=== PATIENT | male | born 1970 | race Caucasian/White ===

== ENCOUNTER 2016-12-06 14:09 | Observation (INO) | payer OTHER ==
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
[2016-12-06] MEDS ORDERED: IOPAMIDOL (ISOVUE-300) 100 ML BTL IV ONE (14:17)
[2016-12-06 14:25] LABS: % IMMATURE GRANULYOCYTES 0.7 % (0.0-1.1); ABSOLUTE IMMATURE GRANULOCYTES 0.07 10^3/uL (0.00-0.10); ADD DIFF? NO; ADD MORPH? NO; ADD SCAN? NO; ATYPICAL LYMPHOCYTE FLAG 10 (0-99); FRAGMENT RBC FLAG 0 (0-99); HEMATOCRIT 45.4 % (40.0-51.0); HEMOGLOBIN 15.6 g/dL (13.7-17.5); LEFT SHIFT FLG 0 (0-99); LIPEMIA HEMOLYSIS FLAG 90 (0-99); MEAN CELL HEMOGLOBIN 33.6 pg (27.9-34.1); MEAN CELL HEMOGLOBIN CONCENTR. 34.4 g/dL (32.4-36.7); MEAN CELL VOLUME 97.8 fL (81.5-99.8); MEAN PLATELET VOLUME 8.9 fL (8.7-11.7); PLATELET CLUMPS FLAG 20 (0-99); PLATELET COUNT 282 10^3/uL (150-400); RED BLOOD CELL COUNT 4.64 10^6/uL (4.40-6.38); RED CELL DISTRIBUTION WIDTH 11.8 % (11.5-15.2)
[2016-12-06] MEDS ORDERED: NS 1,000 ML IV ONE (14:30)
[2016-12-06 14:34] LABS: INR 1.01 (0.83-1.16); PROTIME(PATIENT) 13.2 SEC (12.0-15.0)
[2016-12-06 14:35] LABS: APTT 28.2 SEC (23.0-38.0)
[2016-12-06 14:40] LABS: ANION GAP 12 mEq/L (8-16); CALCIUM 9.9 mg/dL (8.5-10.4); CARBON DIOXIDE 25 mEq/l (22-31); CHLORIDE 103 mEq/L (97-110); CREATININE 0.9 mg/dL (0.7-1.3); ETHANOL SERUM < 10 mg/dL (0-10); GLOMERULAR FILTRATION RATE > 60; GLUCOSE 115 mg/dL (70-100); POTASSIUM 4.1 mEq/L (3.5-5.2); SODIUM 140 mEq/L (134-144)
[2016-12-06] MEDS ORDERED: HYDROmorphONE/DILAUDID 1 MG/ML SYR ONE (14:51)
[2016-12-06] MEDS ORDERED: ONDANSETRON 4 MG/2 ML VIAL IVP ONE (15:16)
[2016-12-06] MEDS ORDERED: HYDROmorphONE/DILAUDID 1 MG/ML SYR IVP ONE (15:16)
[2016-12-06] MEDS ORDERED: ONDANSETRON 4 MG/2 ML VIAL IVP PRN (15:43)
[2016-12-06] MEDS ORDERED: NALOXONE HCL 0.4 MG/ML INJ IVP PRN (15:43)
[2016-12-06] MEDS ORDERED: HYDROmorphONE/DILAUDID 1 MG/ML SYR IVP PRN (15:57)
[2016-12-06] MEDS ORDERED: NS 1,000 ML IV SCH (16:00)
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
[2016-12-06] MEDS: PANTOPRAZOLE SODIUM 40 MG TAB PO SCH (17:47)
[2016-12-06] MEDS: ACETAMINOPHEN 500 MG TAB PO SCH (21:39)
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
[2016-12-06] MEDS: BACITRACIN/POLYMYXIN B SULFATE 28.3 GM TUBE TP SCH (23:34)
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
[2016-12-07 04:51] VITALS: TEMP 98.1
[2016-12-07] MEDS: ACETAMINOPHEN 500 MG TAB PO SCH (05:03)
[2016-12-07 05:08] LABS: % IMMATURE GRANULYOCYTES 0.3 % (0.0-1.1); ABSOLUTE IMMATURE GRANULOCYTES 0.03 10^3/uL (0.00-0.10); ADD DIFF? NO; ADD MORPH? NO; ADD SCAN? NO; ATYPICAL LYMPHOCYTE FLAG 0 (0-99); FRAGMENT RBC FLAG 0 (0-99); HEMATOCRIT 38.5 % (40.0-51.0); HEMOGLOBIN 12.9 g/dL (13.7-17.5); LEFT SHIFT FLG 0 (0-99); LIPEMIA HEMOLYSIS FLAG 80 (0-99); MEAN CELL HEMOGLOBIN 33.5 pg (27.9-34.1); MEAN CELL HEMOGLOBIN CONCENTR. 33.5 g/dL (32.4-36.7); MEAN PLATELET VOLUME 9.1 fL (8.7-11.7); PLATELET CLUMPS FLAG 0 (0-99); PLATELET COUNT 205 10^3/uL (150-400); RED BLOOD CELL COUNT 3.85 10^6/uL (4.40-6.38); RED CELL DISTRIBUTION WIDTH 11.9 % (11.5-15.2)
[2016-12-07 05:26] LABS: ALANINE AMINOTRANSFERASE 41 IU/L (21-72); ALBUMIN 3.5 g/dL (3.5-5.0); ALKALINE PHOSPHATASE 51 IU/L (38-126); ANION GAP 9 mEq/L (8-16); ASPARTATE AMINOTRANSFERASE 29 IU/L (17-59); BILIRUBIN,TOTAL 0.7 mg/dL (0.1-1.4); CALCIUM 8.7 mg/dL (8.5-10.4); CARBON DIOXIDE 23 mEq/l (22-31); CHLORIDE 109 mEq/L (97-110); CREATININE 0.9 mg/dL (0.7-1.3); GLOMERULAR FILTRATION RATE > 60; GLUCOSE 94 mg/dL (70-100); POTASSIUM 4.4 mEq/L (3.5-5.2); SODIUM 141 mEq/L (134-144)
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
[2016-12-07] MEDS: BACITRACIN/POLYMYXIN B SULFATE 28.3 GM TUBE TP SCH (08:25)
[2016-12-07] MEDS: PANTOPRAZOLE SODIUM 40 MG TAB PO SCH (08:25)
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
[2016-12-07 11:04] VITALS: O2SAT 98
[2016-12-07 12:23] VITALS: BP 97/43; PULSE 54; RESP 14
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
== END 2016-12-07 13:22 | disposition home or self-care (01) ==
LOC: EDUNIT# → F2N 17:22
PROVIDERS: ADMIT Surgery; ATTEND Surgery
DX: S06.5X0A Traumatic subdural hemorrhage without loss of consciousness, initial encounter (principal); S32.038A Other fracture of third lumbar vertebra, initial encounter for closed fracture; S06.0X9A Concussion with loss of consciousness of unspecified duration, initial encounter; S30.1XXA Contusion of abdominal wall, initial encounter; S79.911A Unspecified injury of right hip, initial encounter; J34.1 Cyst and mucocele of nose and nasal sinus; V96 Accident to nonpowered aircraft causing injury to occupant; Y93.35 Activity, hang gliding
CPT/HCPCS: 70450; 71260; 72125; 72129; 72132; 73060; 74177; 92523; 97161; 97165; G0378; 82947-QW; 96374; G0480; J1170; J2405; L0120; Q9967

== ENCOUNTER 2018-05-12 12:30 | Inpatient (IN) | payer OTHER ==
[2018-05-12] MEDS ORDERED: ACETAMINOPHEN 325 MG TAB PO PRN (13:36)
[2018-05-12] MEDS ORDERED: oxyCODONE IR 5 MG TAB PO PRN ×2 (13:36→14:44)
[2018-05-12] MEDS ORDERED: IBUPROFEN 600 MG TAB PO PRN (13:46)
[2018-05-12] MEDS ORDERED: BACITRACIN OINTMENT 1 PACKET TP ONE (14:12)
[2018-05-12] MEDS: BACITRACIN OINTMENT 1 PACKET TP SCH ×2 (14:13→22:44)
[2018-05-12] MEDS ORDERED: BISACODYL 10 MG SUPP PR PRN (14:41)
[2018-05-12] MEDS ORDERED: SENNOSIDES 1 TAB PO PRN (14:41)
[2018-05-12] MEDS ORDERED: POLYETHYLENE GLYCOL 3350 17 GM PKT PO PRN (14:41)
[2018-05-12] MEDS ORDERED: CALCIUM CARBONATE 500 MG CHEWABLE TAB PO PRN (14:41)
[2018-05-12] MEDS ORDERED: traMADol 50 MG TAB PO PRN (14:41)
[2018-05-12] MEDS ORDERED: LORazepam 1 MG TAB PO PRN (14:41)
[2018-05-12] MEDS ORDERED: MAGNESIUM HYDROXIDE 30 ML UDCUP PO PRN (14:41)
[2018-05-12] MEDS ORDERED: SODIUM CL NASAL 45 ML BTL NS PRN (14:41)
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
[2018-05-12] MEDS: DABIGATRAN ETEXILATE MESYL 150 MG CAP PO SCH (20:02)
[2018-05-12] MEDS: AQUAPHOR OINTMENT 3.5 OZ JAR TP SCH (20:03)
[2018-05-12] MEDS: DOCUSATE SODIUM 100 MG CAP PO SCH (20:19)
[2018-05-12] MEDS: NYSTATIN POWDER 15 GM BTL TP SCH (20:19)
[2018-05-12] MEDS ORDERED: BACITRACIN TP SCH (21:00)
[2018-05-12] MEDS: ACETAMINOPHEN 325 MG TAB PO SCH ×2 (22:43→23:20)
[2018-05-12] MEDS: MELATONIN 3 MG TAB PO SCH (23:07)
[2018-05-13] MEDS: ACETAMINOPHEN 325 MG TAB PO SCH ×4 (05:51→22:38)
[2018-05-13] MEDS: DOCUSATE SODIUM 100 MG CAP PO SCH ×2 (08:11→21:03)
[2018-05-13] MEDS: NYSTATIN POWDER 15 GM BTL TP SCH ×2 (08:13→21:04)
[2018-05-13] MEDS: DABIGATRAN ETEXILATE MESYL 150 MG CAP PO SCH ×2 (08:19→20:23)
[2018-05-13] MEDS: IBUPROFEN 200 MG TAB PO PRN ×2 (08:19→20:24)
[2018-05-13] MEDS: BACITRACIN OINTMENT 1 PACKET TP SCH ×2 (08:20→21:03)
[2018-05-13] MEDS: AQUAPHOR OINTMENT 3.5 OZ JAR TP SCH ×2 (08:21→21:04)
[2018-05-13] MEDS: TAMSULOSIN HCL 0.4 MG CAP PO SCH (08:24)
[2018-05-13] MEDS: PANTOPRAZOLE SODIUM 40 MG TAB PO SCH (08:25)
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
[2018-05-13] MEDS: MELATONIN 3 MG TAB PO SCH (21:03)
[2018-05-14] MEDS: ACETAMINOPHEN 325 MG TAB PO SCH ×4 (05:31→22:05)
[2018-05-14] MEDS: TAMSULOSIN HCL 0.4 MG CAP PO SCH (08:54)
[2018-05-14] MEDS: IBUPROFEN 200 MG TAB PO PRN ×2 (08:54→20:00)
[2018-05-14] MEDS: BACITRACIN OINTMENT 1 PACKET TP SCH ×2 (08:54→22:06)
[2018-05-14] MEDS: DABIGATRAN ETEXILATE MESYL 150 MG CAP PO SCH ×2 (08:54→20:00)
[2018-05-14] MEDS: NYSTATIN POWDER 15 GM BTL TP SCH ×2 (08:55→22:07)
[2018-05-14] MEDS: PANTOPRAZOLE SODIUM 40 MG TAB PO SCH (08:55)
[2018-05-14] MEDS: AQUAPHOR OINTMENT 3.5 OZ JAR TP SCH ×2 (08:55→22:07)
[2018-05-14] MEDS: DOCUSATE SODIUM 100 MG CAP PO SCH ×2 (08:55→22:06)
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
[2018-05-14] MEDS: MELATONIN 3 MG TAB PO SCH (22:07)
[2018-05-15] MEDS: IBUPROFEN 200 MG TAB PO PRN ×3 (02:34→14:16)
[2018-05-15] MEDS: ACETAMINOPHEN 325 MG TAB PO SCH ×4 (05:47→23:05)
[2018-05-15] MEDS: TAMSULOSIN HCL 0.4 MG CAP PO SCH (08:35)
[2018-05-15] MEDS: DABIGATRAN ETEXILATE MESYL 150 MG CAP PO SCH ×2 (08:36→20:17)
[2018-05-15] MEDS: BACITRACIN OINTMENT 1 PACKET TP SCH ×2 (08:37→20:20)
[2018-05-15] MEDS: NYSTATIN POWDER 15 GM BTL TP SCH ×2 (08:38→20:19)
[2018-05-15] MEDS: DOCUSATE SODIUM 100 MG CAP PO SCH ×3 (09:03→20:26)
[2018-05-15] MEDS: AQUAPHOR OINTMENT 3.5 OZ JAR TP SCH ×2 (09:03→20:21)
[2018-05-15] MEDS: PANTOPRAZOLE SODIUM 40 MG TAB PO SCH (09:03)
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
--- NOTE | 2018-05-15 18:26 | WOCRNPDOC ---
WOCRN Advanced Assessment Note - Skin Integrity Problem, Advanced Assess Right Lower Leg Surgical Wound/Incision Dressing Type: Open to Air, Other Other Dressing Type: bacitracin Closure Description: Not Approximated Integumentary Issue Intervention: Dressing Applied, Silver Gel Applied Edita Wound Tissue: Swollen Edita Wound Swelling: Mild Wound Bed Color: [place], Red, White Wound Bed Constitution: Granulation Tissue (15%), Red/[place] - Non Granular Tissue (50%), Adhered Slough (35%) Site Measurement - Head-to-Toe Length X Width X Depth (cm): 14x7x raised graft Skin Integrity Problem Comment: Patient had surgical graft in March. Wound cleaned with normal saline and patted dry. Patient was concerned about coloration of wound, as he has been monitoring it throughout his healing process. Wound appears stalled. Bacitracin has been applied regularly to wound. Patient is receptive to treatment. Wound care will round again later this week.
[2018-05-15] MEDS: MELATONIN 3 MG TAB PO SCH ×2 (20:17→20:26)
[2018-05-16] MEDS: ACETAMINOPHEN 325 MG TAB PO SCH ×4 (06:09→22:36)
[2018-05-16] MEDS: TAMSULOSIN HCL 0.4 MG CAP PO SCH (08:51)
[2018-05-16] MEDS: DABIGATRAN ETEXILATE MESYL 150 MG CAP PO SCH ×2 (08:51→21:13)
[2018-05-16] MEDS: IBUPROFEN 200 MG TAB PO PRN (08:56)
[2018-05-16] MEDS: BACITRACIN OINTMENT 1 PACKET TP SCH ×2 (08:58→21:13)
[2018-05-16] MEDS: AQUAPHOR OINTMENT 3.5 OZ JAR TP SCH (08:58)
[2018-05-16] MEDS: DOCUSATE SODIUM 100 MG CAP PO SCH (08:58)
[2018-05-16] MEDS: PANTOPRAZOLE SODIUM 40 MG TAB PO SCH (08:59)
[2018-05-16] MEDS: NYSTATIN POWDER 15 GM BTL TP SCH (08:59)
[2018-05-16] MEDS ORDERED: AQUAPHOR OINTMENT 3.5 OZ JAR TP PRN (13:13)
[2018-05-16] MEDS ORDERED: NYSTATIN POWDER 15 GM BTL TP PRN (13:13)
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
[2018-05-17] MEDS: ACETAMINOPHEN 325 MG TAB PO SCH ×4 (04:48→23:01)
[2018-05-17] MEDS: DABIGATRAN ETEXILATE MESYL 150 MG CAP PO SCH ×2 (08:46→21:32)
[2018-05-17] MEDS: TAMSULOSIN HCL 0.4 MG CAP PO SCH (08:46)
[2018-05-17] MEDS: PANTOPRAZOLE SODIUM 40 MG TAB PO SCH (10:48)
[2018-05-17] MEDS: BACITRACIN OINTMENT 1 PACKET TP SCH ×2 (10:48→22:04)
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
--- NOTE | 2018-05-17 17:17 | PDOREHIP ---
Admission [facility] - Admission - 3 Day Assessment Period Admission Date/Day 1: 05/12/18 Day 2: 05/13/18 Day 3: 05/14/18 - Active Diagnoses Comorbidities and Co-existing Conditions at Admission: 13446. None of the Above - Skin Conditions Unhealed Pressure Ulcer (1 or more/Stage 1 or >)-Admission: 0. No Discharge [facility] - Discharge - 3 Day Assessment Period 2 Days Prior to Anticipated Discharge Date: 05/17/18 1 Day Prior to Anticipated Discharge Date: 05/18/18 Anticipated Discharge Date: 05/19/18
--- NOTE | 2018-05-17 19:47 | WOCRNPDOC ---
WOCRN Advanced Assessment Note - Skin Integrity Problem, Advanced Assess Right Lower Leg Surgical Wound/Incision Dressing Type: AllevJangl SMS Life (x2) Dressing Description: Clean/Dry, Intact Closure Description: Sutures (disolvable sutures noted along wound margins. ) Exudate Amount: None Integumentary Issue Intervention: Dressing Removed Edita Wound Tissue: Erythema Wound Bed Constitution: Stable Eschar (x2 areas) Wound Edges: Attached Site Measurement - Head-to-Toe Length X Width X Depth (cm): 1.5x1x0 superior wound around 11:30 and 0.5x1x0 is inferior wound at 5 oclock. Skin Integrity Problem Comment: Muscle flap site that patient reports is approximately 4 weeks old. Graft is almost fully eptithelized but has two small areas of necrosis. One inferior site along flap margin at 5 oclock and a second one around 11:30 in the superior wound bed. OK to apply lotion to flap site BID or bacitracin, however recommend that eschar be moistened with silvasorb or wound gel and covered with a foam border dressing to facilitate eschar removal and softening. Wound care will round again next week.
[2018-05-18] MEDS: ACETAMINOPHEN 325 MG TAB PO SCH ×4 (04:24→23:14)
[2018-05-18] MEDS: TAMSULOSIN HCL 0.4 MG CAP PO SCH (08:49)
[2018-05-18] MEDS: IBUPROFEN 200 MG TAB PO PRN (08:50)
[2018-05-18] MEDS: DABIGATRAN ETEXILATE MESYL 150 MG CAP PO SCH ×2 (08:50→21:05)
[2018-05-18] MEDS: BACITRACIN OINTMENT 1 PACKET TP SCH ×2 (09:26→21:07)
[2018-05-18] MEDS: PANTOPRAZOLE SODIUM 40 MG TAB PO SCH (09:26)
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
[2018-05-19] MEDS: ACETAMINOPHEN 325 MG TAB PO SCH ×4 (04:48→22:30)
[2018-05-19] MEDS: DABIGATRAN ETEXILATE MESYL 150 MG CAP PO SCH ×2 (08:56→22:31)
[2018-05-19] MEDS: PANTOPRAZOLE SODIUM 40 MG TAB PO SCH (08:56)
[2018-05-19] MEDS: BACITRACIN OINTMENT 1 PACKET TP SCH ×2 (08:57→22:34)
[2018-05-19] MEDS: TAMSULOSIN HCL 0.4 MG CAP PO SCH (08:57)
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
[2018-05-20] MEDS: ACETAMINOPHEN 325 MG TAB PO SCH ×4 (06:12→22:30)
[2018-05-20] MEDS: DABIGATRAN ETEXILATE MESYL 150 MG CAP PO SCH ×2 (08:57→22:30)
[2018-05-20] MEDS: TAMSULOSIN HCL 0.4 MG CAP PO SCH (08:57)
[2018-05-20] MEDS: PANTOPRAZOLE SODIUM 40 MG TAB PO SCH (09:01)
[2018-05-20] MEDS: BACITRACIN OINTMENT 1 PACKET TP SCH ×2 (11:49→22:29)
[2018-05-20] MEDS ORDERED: MELATONIN 3 MG TAB PO PRN (12:30)
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
[2018-05-21] MEDS: ACETAMINOPHEN 325 MG TAB PO SCH ×4 (06:16→22:14)
[2018-05-21] MEDS: PANTOPRAZOLE SODIUM 40 MG TAB PO SCH (09:15)
[2018-05-21] MEDS: BACITRACIN OINTMENT 1 PACKET TP SCH ×2 (09:15→20:03)
[2018-05-21] MEDS: DABIGATRAN ETEXILATE MESYL 150 MG CAP PO SCH ×2 (09:18→22:13)
[2018-05-21] MEDS: TAMSULOSIN HCL 0.4 MG CAP PO SCH (09:18)
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
[2018-05-21] MEDS ORDERED: MELATONIN 3 MG TAB PO SCH (21:30)
[2018-05-22] MEDS: ACETAMINOPHEN 325 MG TAB PO SCH ×2 (04:10→12:46)
[2018-05-22] MEDS: DABIGATRAN ETEXILATE MESYL 150 MG CAP PO SCH (09:00)
[2018-05-22] MEDS: PANTOPRAZOLE SODIUM 40 MG TAB PO SCH (09:01)
[2018-05-22] MEDS: TAMSULOSIN HCL 0.4 MG CAP PO SCH (09:01)
[2018-05-22 09:39] VITALS: BP 111/69
[2018-05-22] MEDS: BACITRACIN OINTMENT 1 PACKET TP SCH (11:40)
--- NOTE | 2018-05-22 13:08 | PDOREHIP ---
Admission [facility] - Admission - 3 Day Assessment Period Admission Date/Day 1: 05/12/18 Day 2: 05/13/18 Day 3: 05/14/18 Discharge [facility] - Discharge - 3 Day Assessment Period 2 Days Prior to Anticipated Discharge Date: 05/20/18 1 Day Prior to Anticipated Discharge Date: 05/21/18 Anticipated Discharge Date: 05/22/18 - Discharge Skin Conditions Unhealed Pressure Ulcer (1 or more/Stage 1 or >)-Discharge: 1. Yes
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
== END 2018-05-22 13:27 | disposition home or self-care (01) | DRG 561 ==
LOC: BREH 12:30
PROVIDERS: ADMIT Internal Medicine; ATTEND Internal Medicine
DX: Z47.89 Encounter for other orthopedic aftercare (principal); S32.811D Multiple fractures of pelvis with unstable disruption of pelvic ring, subsequent encounter for fracture with routine healing; S32.1 Fracture of sacrum; S72.351D Displaced comminuted fracture of shaft of right femur, subsequent encounter for closed fracture with routine healing; S72.001D Fracture of unspecified part of neck of right femur, subsequent encounter for closed fracture with routine healing; S82.251 Displaced comminuted fracture of shaft of right tibia; S92.002D Unspecified fracture of left calcaneus, subsequent encounter for fracture with routine healing; S92.332D Displaced fracture of third metatarsal bone, left foot, subsequent encounter for fracture with routine healing; S92.342D Displaced fracture of fourth metatarsal bone, left foot, subsequent encounter for fracture with routine healing; S92.352D Displaced fracture of fifth metatarsal bone, left foot, subsequent encounter for fracture with routine healing; S92.324D Nondisplaced fracture of second metatarsal bone, right foot, subsequent encounter for fracture with routine healing; S92.334D Nondisplaced fracture of third metatarsal bone, right foot, subsequent encounter for fracture with routine healing; S92.344D Nondisplaced fracture of fourth metatarsal bone, right foot, subsequent encounter for fracture with routine healing; S32.038D Other fracture of third lumbar vertebra, subsequent encounter for fracture with routine healing; S32.058D Other fracture of fifth lumbar vertebra, subsequent encounter for fracture with routine healing; Z98.1 Arthrodesis status; S22.069D Unspecified fracture of T7-T8 vertebra, subsequent encounter for fracture with routine healing; S22.079D Unspecified fracture of T9-T10 vertebra, subsequent encounter for fracture with routine healing; S02.2XXD Fracture of nasal bones, subsequent encounter for fracture with routine healing; S02.19XD Other fracture of base of skull, subsequent encounter for fracture with routine healing; Z86.711 Personal history of pulmonary embolism; Z86.718 Personal history of other venous thrombosis and embolism; Z79.01 Long term (current) use of anticoagulants; K59.03 Drug induced constipation; T40.2X5A Adverse effect of other opioids, initial encounter
CPT/HCPCS: 97110-GO; 97110-GP; 97116-GP; 97162-GP; 97166-GO; 97530-GO; 97530-GP; 97535-GO

== ENCOUNTER 2018-11-10 12:32 | Observation (INO) | payer OTHER ==
--- NOTE | 2018-11-10 13:07 | EDPHY ---
H & P Stated Complaint: Anuria Time Seen by Provider: 11/10/18 12:51 HPI/ROS: CHIEF COMPLAINT: Difficulty urinating HISTORY OF PRESENT ILLNESS: Patient is a 48-year-old man comes to the emergency department stating that he has lower pelvic pain and difficulty urinating for the last several hours. He also reports constipation and no bowel movement in the last 2 days. He has been able to pass gas even today. He primarily complains of pain in his perineal area and states that he feels a fullness. No history of hemorrhoids or fissures. He has had abdominal surgery for the placement of rods in his lumbar spine but has never had any intestinal procedures. He has not had a fever. No hematuria. No rash. No recent sexual contact. No recent trauma. No numbness or weakness in his legs. No paresthesias. No saddle anesthesia. Severity: Moderate Modifying factors: None REVIEW OF SYSTEMS: Constitutional: denies: chills, fever, recent illness, recent injury EENTM: denies: blurred vision, double vision, nose congestion Respiratory: denies: cough, shortness of breath Cardiac: denies: chest pain, irregular heart rate, lightheadedness, palpitations Gastrointestinal/Abdominal: See HPI Genitourinary: denies: dysuria, frequency, hematuria, pain Musculoskeletal: denies: joint pain, muscle pain Skin: denies: lesions, rash, jaundice, bruising Neurological: denies: headache, numbness, paresthesia, tingling, dizziness, weakness Hematologic/Lymphatic: denies: blood clots, easy bleeding, easy bruising Immunologic/allergic: denies: HIV/AIDS, transplant 10 systems reviewed and negative except as noted EXAM: GENERAL: Well-appearing, well-nourished and in no acute distress. HEAD: Atraumatic, normocephalic. EYES: Pupils equal round and reactive to light, extraocular movements intact, sclera anicteric, conjunctiva are normal. ENT: TMs normal, nares patent, oropharynx clear without exudates. Moist mucous membranes. NECK: Normal range of motion, supple without lymphadenopathy or JVD. LUNGS: Breath sounds clear to auscultation bilaterally and equal. No wheezes rales or rhonchi. HEART: Regular rate and rhythm without murmurs, rubs or gallops. ABDOMEN: Soft, nontender, normoactive bowel sounds. No guarding, no rebound. No masses appreciated. No obvious distension bladder scanner shows 400 mL retained urine. : Patient does have exquisite perineal tenderness. No obvious fullness felt. No erythema or drainage. No visible rectal fissures or hemorrhoids. He BACK: No CVA tenderness, no spinal tenderness, step-offs or deformities EXTREMITIES: Normal range of motion, no pitting or edema. No clubbing or cyanosis. NEUROLOGICAL: Cranial nerves II through XII grossly intact. Normal speech, normal gait. 5/5 strength, normal movement in all extremities, normal sensation , normal reflexes PSYCH: Normal mood, normal affect. SKIN: Warm, dry, normal turgor, no visible rashes or lesions. Source: Patient Exam Limitations: No limitations - Personal History Current Tetanus/Diphtheria Vaccine: No - Medical/Surgical History Hx Asthma: No Hx Chronic Respiratory Disease: No Hx Diabetes: No Hx Cardiac Disease: No Hx Renal Disease: No Hx Cirrhosis: No Hx Alcoholism: No Hx HIV/AIDS: No Hx Splenectomy or Spleen Trauma: No Other PMH: none significant - Family History Significant Family History: No pertinent family hx - Social History Smoking Status: Never smoked Alcohol Use: None Constitutional: Initial Vital Signs Temperature (C) 37.1 C 11/10/18 12:36 Heart Rate 101 H 11/10/18 12:36 Respiratory Rate 22 H 11/10/18 12:36 Blood Pressure 123/80 H 11/10/18 12:36 O2 Sat (%) 97 11/10/18 12:36 O2 Delivery Mode Room Air Allergies/Adverse Reactions: No Known Allergies Allergy (Unverified 11/10/18 15:34) Home Medications: Medication Instructions Recorded Acetaminophen [Tylenol] 650 mg PO Q6H PRN 11/10/18 Ibuprofen [Motrin (*)] 400 mg PO Q6H PRN 11/10/18 Medical Decision Making - Diagnostics Imaging Results: Imaging Impressions Abdomen CT 11/10/18 12:58 Impression: 1. Perianal abscess. 2. Additional findings as above. Findings discussed with Dr. Des Regan on November 10, 2018 at 1439 hours. Imaging: Discussed imaging studies w/ call worker person Radiologist ED Course/Re-evaluation: [place] [address] with a left shift. hematocrit 39 platelets 420. He does have blood in his urine which may be from the Lopez catheter although nurse reports that was not traumatic. No white cells. 2:45 p.m. We discussed the CT results. I have consulted surgery Dr. Tabares who will come to evaluate. 3:[address] Tabares has consulted and will take the patient to the OR. The patient a recently and so will be admitted 1st. antibiotics have been ordered. Differential Diagnosis: Partial list of the Differential diagnosis considered include but were not limited to; abscess, urinary retention, BPH and although unlikely based on the history and physical exam, I also considered urinary tract infection, ischemia, obstruction. - Data Points Laboratory Results: Laboratory Results 11/10/18 13:15 11/10/18 13:15 11/10/18 11/10/18 11/10/18 13:20 13:19 13:15 WBC RBC Hgb POC Hgb 13.6 gm/dL L gm/dL (13.7-17.5) Hct POC Hct 40 % % (40-51) MCV MCH MCHC RDW Plt Count MPV Neut % (Auto) Lymph % (Auto) [place] % (Auto) Eos % (Auto) Baso % (Auto) Nucleat RBC Rel Count Absolute Neuts (auto) Absolute Lymphs (auto) Absolute Monos (auto) Absolute Eos (auto) Absolute Basos (auto) Absolute Nucleated RBC Immature Gran % Immature Gran # RBC/WBC/PLT Morphology Platelet Estimate POC Sodium 143 mEq/L mEq/L (135-145) Sodium 141 mEq/L mEq/L (135-145) POC Potassium 3.7 mEq/L mEq/L (3.3-5.0) Potassium 4.3 mEq/L mEq/L (3.5-5.2) POC Chloride 107 mEq/L mEq/L (97-110) Chloride 106 mEq/L mEq/L (97-110) Carbon Dioxide 23 mEq/l mEq/l (22-31) POC Total CO2 23 mEq/L mEq/L (22-31) Anion Gap 12 mEq/L mEq/L (6-14) POC BUN 13 mg/dL mg/dL (7-23) BUN 15 mg/dL mg/dL (7-23) Creatinine 0.6 mg/dL L mg/dL (0.7-1.3) POC Creatinine 0.6 mg/dL L mg/dL (0.7-1.3) Estimated GFR > 60 Glucose 124 mg/dL H mg/dL (70-100) POC Glucose 130 mg/dL H mg/dL (70-100) Calcium 9.1 mg/dL mg/dL (8.5-10.4) Urine Color MARIA LUISA Urine Appearance HAZY Urine pH 5.0 (5.0-7.5) Ur Specific [place] > 1.035 H (1.002-1.030) Urine Protein 2+ H (NEGATIVE) Urine Ketones 1+ H (NEGATIVE) Urine Blood 1+ H (NEGATIVE) Urine Nitrate NEGATIVE (NEGATIVE) Urine Bilirubin NEGATIVE (NEGATIVE) Urine Urobilinogen 4.0 EU H EU (0.2-1.0) Ur Leukocyte Esterase NEGATIVE (NEGATIVE) Urine RBC 25-50 /hpf H /hpf (0-3) Urine WBC 0-1 /hpf /hpf (0-3) Ur Epithelial Cells NONE SEEN /lpf /lpf (NONE-1+) Urine Mucus 2+ /lpf H /lpf (NONE-1+) Urine Glucose NEGATIVE (NEGATIVE) 11/10/18 13:15 WBC 19.63 10^3/uL H 10^3/uL (3.80-9.50) RBC 3.99 10^6/uL L 10^6/uL (4.40-6.38) Hgb 12.9 g/dL L g/dL (13.7-17.5) POC Hgb Hct 38.9 % L % (40.0-51.0) POC Hct MCV 97.5 fL fL (81.5-99.8) MCH 32.3 pg pg (27.9-34.1) MCHC 33.2 g/dL g/dL (32.4-36.7) RDW 12.3 % % (11.5-15.2) Plt Count 420 10^3/uL H 10^3/uL (150-400) MPV 8.6 fL L fL (8.7-11.7) Neut % (Auto) 91.3 % H % (39.3-74.2) Lymph % (Auto) 2.4 % L % (15.0-45.0) [place] % (Auto) 5.4 % % (4.5-13.0) Eos % (Auto) 0.1 % L % (0.6-7.6) Baso % (Auto) 0.2 % L % (0.3-1.7) Nucleat RBC Rel Count 0.0 % % (0.0-0.2) Absolute Neuts (auto) 17.92 10^3/uL H 10^3/uL (1.70-6.50) Absolute Lymphs (auto) 0.47 10^3/uL L 10^3/uL (1.00-3.00) Absolute Monos (auto) 1.06 10^3/uL H 10^3/uL (0.30-0.80) Absolute Eos (auto) 0.02 10^3/uL L 10^3/uL (0.03-0.40) Absolute Basos (auto) 0.04 10^3/uL 10^3/uL (0.02-0.10) Absolute Nucleated RBC 0.00 10^3/uL 10^3/uL (0-0.01) Immature Gran % 0.6 % % (0.0-1.1) Immature Gran # 0.12 10^3/uL H 10^3/uL (0.00-0.10) RBC/WBC/PLT Morphology TNP Platelet Estimate TNP POC Sodium Sodium POC Potassium Potassium POC Chloride Chloride Carbon Dioxide POC Total CO2 Anion Gap POC BUN BUN Creatinine POC Creatinine Estimated GFR Glucose POC Glucose Calcium Urine Color Urine Appearance Urine pH Ur Specific [place] Urine Protein Urine Ketones Urine Blood Urine Nitrate Urine Bilirubin Urine Urobilinogen Ur Leukocyte Esterase Urine RBC Urine WBC Ur Epithelial Cells Urine Mucus Urine Glucose Medications Given: Discontinued Medications Cefoxitin Sodium 2 gm/ Sodium (Chloride) 100 mls @ 200 mls/hr IV EDNOW ONE PRN Reason: Protocol Stop: 11/10/18 15:32 Last Admin: 11/10/18 15:18 Dose: 100 mls Point of Care Test Results: Chemistry 11/10/18 13:19 POC Sodium 143 mEq/L mEq/L (135-145) POC Potassium 3.7 mEq/L mEq/L (3.3-5.0) POC Chloride 107 mEq/L mEq/L (97-110) POC Total CO2 23 mEq/L mEq/L (22-31) POC BUN 13 mg/dL mg/dL (7-23) POC Creatinine 0.6 mg/dL L mg/dL (0.7-1.3) POC Glucose 130 mg/dL H mg/dL (70-100) ISTAT H&H 11/10/18 13:19 POC Hgb 13.6 gm/dL L gm/dL (13.7-17.5) POC Hct 40 % % (40-51) Departure - Departure Disposition: [facility] Inpatient Acute Clinical Impression: Perianal abscess Condition: Fair
[2018-11-10] MEDS ORDERED: IOPAMIDOL (ISOVUE-300) 100 ML BTL ONE (13:26)
[2018-11-10] MEDS ORDERED: cefOXitin SODIUM 2 GM in NS 100 ML IV ONE (15:03)
[2018-11-10 15:22] LABS: PLATELET COUNT 420 10^3/uL (150-400)
[2018-11-10] MEDS ORDERED: LR 1,000 ML IV ONE (15:34)
[2018-11-10] MEDS ORDERED: fentaNYL 100 MCG/2 ML INJ IVP ONE (16:05)
--- NOTE | 2018-11-10 16:07 | PDANEPAE ---
ANE Past Medical History - Cardiovascular History Hx Hypertension: No Hx Chest Pain: No Hx Coronary Artery / Peripheral Vascular Disease: No - Pulmonary History Hx COPD: No Hx Oxygen in Use at Home: No Hx Sleep Apnea: No - Endocrine History Hx Diabetes: No - Renal History Hx Renal Disorders: No - Liver History Hx Hepatic Disorders: No - Neurological & Psychiatric Hx Hx Neurological and Psychiatric Disorders: No - Congenital Disorder History Hx Congenital Disorders: No - GI History GERD: no Hx Gastrointestinal Disorders: No - Chronic Pain History Chronic Pain: No - Surgical History Prior Surgeries: Multyiple GA no propblems ANE Review of Systems Review of Systems: ANE Patient History - Allergies Allergies/Adverse Reactions: No Known Allergies Allergy (Unverified 11/10/18 15:34) - Home Medications Home Medications: Acetaminophen [Tylenol] 650 mg PO Q6H PRN 11/10/18 [Last Taken 11/09/18] Ibuprofen [Motrin (*)] 400 mg PO Q6H PRN 11/10/18 [Last Taken 11/10/18] - NPO status NPO Since - Liquids (Date): 11/10/18 NPO Since - Liquids (Time): 10:30 NPO Since - Solids (Date): 11/10/18 NPO Since - Solids (Time): 10:30 - Smoking Hx Smoking Status: Never smoked ANE Labs/Vital Signs - Labs Result Diagrams: 11/10/18 13:15 11/10/18 13:15 - Vital Signs Blood Pressure: 123/80 Heart Rate: 101 Respiratory Rate: 22 O2 Sat (%): 97 Height: 170.18 cm Weight: 58.967 kg ANE Physical Exam - Airway Neck exam: FROM Mallampati Score: Class 1 Mouth exam: normal dental/mouth exam - Pulmonary Pulmonary: no respiratory distress, no rales or rhonchi, clear to auscultation - Cardiovascular Cardiovascular: regular rate and rhythym, no murmur, rub, or gallop - ASA Status ASA Status: II ANE Anesthesia Plan Anesthesia Plan: GA w LMA
[2018-11-10] MEDS ORDERED: fentaNYL 100 MCG/2 ML INJ ONE ×3 (16:08→17:00)
--- NOTE | 2018-11-10 16:08 | POSTANESTH ---
Post Anesthetic Evaluation Cardiovascular Status: Normal, Stable Respiratory Status: Normal, Stable Level of Consciousness/Mental Status: Can Participate in Eval Pain Control: Adequate, Prn Tx Ordered Nausea/Vomiting Control: Adequate, Prn Tx Ordered Complications Possibly Related to Anesthesia: None Noted
[2018-11-10] MEDS ORDERED: BUPIVACAINE/EPI 0.5% 30 ML SDV ONE (16:19)
--- NOTE | 2018-11-10 16:20 | PDGENHP ---
History and Physical - Chief Complaint perirectal pain - History of Present Illness HAs had pain since last weekend. Has gotten worse, associated with fevers and chills. No BM in a couple days. No Hx of abscesses. No personal or fam Hx of IBD History Information - Allergies/Home Medication List Allergies/Adverse Reactions: No Known Allergies Allergy (Unverified 11/10/18 15:34) Home Medications: Acetaminophen [Tylenol] 650 mg PO Q6H PRN 11/10/18 [Last Taken 11/09/18] Ibuprofen [Motrin (*)] 400 mg PO Q6H PRN 11/10/18 [Last Taken 11/10/18] I have personally reviewed and updated: medical history, social history, surgical history - Social History Smoking Status: Never smoked Alcohol Use: None Review of Systems Review of Systems: ROS: 10pt was reviewed & negative except for what was stated in HPI & below Physical Exam Physical Exam: Temp Pulse Resp BP Pulse Ox 37.1 C 101 H 22 H 123/80 H 97 11/10/18 15:47 11/10/18 16:07 11/10/18 16:07 11/10/18 16:07 11/10/18 16:07 Constitutional: no apparent distress, appears nourished, not in pain Eyes: PERRL, anicteric sclera, EOMI Ears, Nose, Mouth, Throat: moist mucous membranes, hearing normal, ears appear normal, no oral mucosal ulcers Cardiovascular: regular rate and rhythym, no murmur, rub, or gallop, No edema Respiratory: no respiratory distress, no rales or rhonchi, clear to auscultation Gastrointestinal: normoactive bowel sounds, soft, non-tender abdomen, no palpable masses, other (Rectal: tender, fullness noted posteriorly ) Genitourinary: no bladder fullness, no bladder tenderness Skin: warm, normal color, no rashes or abrasions, no fluctuance, no induration, No mottled Musculoskeletal: full muscle strength, no muscle tenderness, normal joint ROM, no joint effusions Psychiatric: interacting appropriately, not anxious, not encephalopathic, thought process linear Lymph, Heme, Immunologic: no cervical LAD, no supraclavicular LAD Lab Data & Imaging Review 11/10/18 13:15 11/10/18 13:15 WBC 19.63 10^3/uL (3.80-9.50) H 11/10/18 13:15 RBC 3.99 10^6/uL (4.40-6.38) L 11/10/18 13:15 Hgb 12.9 g/dL (13.7-17.5) L 11/10/18 13:15 POC Hgb 13.6 gm/dL (13.7-17.5) L 11/10/18 13:19 Hct 38.9 % (40.0-51.0) L 11/10/18 13:15 POC Hct 40 % (40-51) 11/10/18 13:19 MCV 97.5 fL (81.5-99.8) 11/10/18 13:15 MCH 32.3 pg (27.9-34.1) 11/10/18 13:15 MCHC 33.2 g/dL (32.4-36.7) 11/10/18 13:15 RDW 12.3 % (11.5-15.2) 11/10/18 13:15 Plt Count 420 10^3/uL (150-400) H 11/10/18 13:15 MPV 8.6 fL (8.7-11.7) L 11/10/18 13:15 Neut % (Auto) 91.3 % (39.3-74.2) H 11/10/18 13:15 Lymph % (Auto) 2.4 % (15.0-45.0) L 11/10/18 13:15 [place] % (Auto) 5.4 % (4.5-13.0) 11/10/18 13:15 Eos % (Auto) 0.1 % (0.6-7.6) L 11/10/18 13:15 Baso % (Auto) 0.2 % (0.3-1.7) L 11/10/18 13:15 Nucleat RBC Rel Count 0.0 % (0.0-0.2) 11/10/18 13:15 Absolute Neuts (auto) 17.92 10^3/uL (1.70-6.50) H 11/10/18 13:15 Absolute Lymphs (auto) 0.47 10^3/uL (1.00-3.00) L 11/10/18 13:15 Absolute Monos (auto) 1.06 10^3/uL (0.30-0.80) H 11/10/18 13:15 Absolute Eos (auto) 0.02 10^3/uL (0.03-0.40) L 11/10/18 13:15 Absolute Basos (auto) 0.04 10^3/uL (0.02-0.10) 11/10/18 13:15 Absolute Nucleated RBC 0.00 10^3/uL (0-0.01) 11/10/18 13:15 Immature Gran % 0.6 % (0.0-1.1) 11/10/18 13:15 Immature Gran # 0.12 10^3/uL (0.00-0.10) H 11/10/18 13:15 RBC/WBC/PLT Morphology TNP 11/10/18 13:15 Platelet Estimate TNP 11/10/18 13:15 POC Sodium 143 mEq/L (135-145) 11/10/18 13:19 Sodium 141 mEq/L (135-145) 11/10/18 13:15 POC Potassium 3.7 mEq/L (3.3-5.0) 11/10/18 13:19 Potassium 4.3 mEq/L (3.5-5.2) 11/10/18 13:15 POC Chloride 107 mEq/L (97-110) 11/10/18 13:19 Chloride 106 mEq/L (97-110) 11/10/18 13:15 Carbon Dioxide 23 mEq/l (22-31) 11/10/18 13:15 POC Total CO2 23 mEq/L (22-31) 11/10/18 13:19 Anion Gap 12 mEq/L (6-14) 11/10/18 13:15 POC BUN 13 mg/dL (7-23) 11/10/18 13:19 BUN 15 mg/dL (7-23) 11/10/18 13:15 Creatinine 0.6 mg/dL (0.7-1.3) L 11/10/18 13:15 POC Creatinine 0.6 mg/dL (0.7-1.3) L 11/10/18 13:19 Estimated GFR > 60 11/10/18 13:15 Glucose 124 mg/dL (70-100) H 11/10/18 13:15 POC Glucose 130 mg/dL (70-100) H 11/10/18 13:19 Calcium 9.1 mg/dL (8.5-10.4) 11/10/18 13:15 Urine Color MARIA LUISA 11/10/18 13:20 Urine Appearance HAZY 11/10/18 13:20 Urine pH 5.0 (5.0-7.5) 11/10/18 13:20 Ur Specific [place] > 1.035 (1.002-1.030) H 11/10/18 13:20 Urine Protein 2+ (NEGATIVE) H 11/10/18 13:20 Urine Ketones 1+ (NEGATIVE) H 11/10/18 13:20 Urine Blood 1+ (NEGATIVE) H 11/10/18 13:20 Urine Nitrate NEGATIVE (NEGATIVE) 11/10/18 13:20 Urine Bilirubin NEGATIVE (NEGATIVE) 11/10/18 13:20 Urine Urobilinogen 4.0 EU (0.2-1.0) H 11/10/18 13:20 Ur Leukocyte Esterase NEGATIVE (NEGATIVE) 11/10/18 13:20 Urine RBC 25-50 /hpf (0-3) H 11/10/18 13:20 Urine WBC 0-1 /hpf (0-3) 11/10/18 13:20 Ur Epithelial Cells NONE SEEN /lpf (NONE-1+) 11/10/18 13:20 Urine Mucus 2+ /lpf (NONE-1+) H 11/10/18 13:20 Urine Glucose NEGATIVE (NEGATIVE) 11/10/18 13:20 Visualized and Interpreted imaging results: Yes Interpretation: CT: large horseshoe perirectal Assessment & Plan Assessment: Perianal abscess (Acute) Plan: large perirectal - to OR for drainage, will look for fistula. - will likely require drain given size - abx given in ED
[2018-11-10] MEDS ORDERED: DEXAMETHASONE 4 MG/ML VIAL ONE (16:33)
[2018-11-10] MEDS ORDERED: KETOROLAC 30 MG/1 ML SDV ONE (16:33)
[2018-11-10] MEDS ORDERED: ONDANSETRON 4 MG/2 ML VIAL ONE (16:33)
[2018-11-10] MEDS ORDERED: PROPOFOL 200 MG/20 ML VIAL ONE (16:33)
[2018-11-10] MEDS ORDERED: LIDOCAINE 2% 5 ML SDV ONE (16:33)
[2018-11-10] MEDS ORDERED: ACETAMINOPHEN 325 MG TAB PO PRN (17:25)
[2018-11-10] MEDS ORDERED: HYDROmorphONE/DILAUDID 1 MG/ML INJ IVP PRN (17:25)
[2018-11-10] MEDS ORDERED: HYDROCODONE/APAP 5/325 TAB PO PRN (17:25)
[2018-11-10] MEDS ORDERED: ONDANSETRON 4 MG/2 ML VIAL IVP PRN ×2 (17:25→17:46)
--- NOTE | 2018-11-10 17:25 | POSTOPPROG ---
Post Op Note Date of Operation: 11/10/18 Surgeon: Enrique Tabares Anesthesiologist: Andres Anesthesia: GET(General Endotracheal) Pre-op Diagnosis: Perirectal abscess Post-op Diagnosis: same Procedure: EUA, I&D of perirectal abscess with drain placement Findings: large horseshoe abscess. 1/2 inch marleny in cavity Inf/Abcess present in the surg proc area at time of surgery?: Yes Depth: Deep Incisional (Fascial) EBL: 50-100 Total fluids administered: 1000cc washout Drains: [place] Specimen(s): fluid for culture
[2018-11-10] MEDS ORDERED: D5W 1/2 NS W/ 20 KCl/L 1,000 ML IV SCH (17:30)
[2018-11-10] MEDS ORDERED: LR 500 ML IV PRN (17:46)
[2018-11-10] MEDS ORDERED: MEPERIDINE 25 MG/0.5 ML AMP IVP PRN (17:46)
[2018-11-10] MEDS ORDERED: NALOXONE HCL 0.4 MG/ML INJ IVP PRN (17:46)
[2018-11-10] MEDS ORDERED: METOCLOPRAMIDE 10 MG/2 ML VIAL IVP PRN (17:46)
[2018-11-10] MEDS ORDERED: ACETAMINOPHEN 500 MG TAB PO PRN (17:46)
[2018-11-10] MEDS ORDERED: PHENYLEPHRINE HCL 100 MCG/ML SYR IVP PRN (17:46)
[2018-11-10] MEDS ORDERED: NS 500 ML IV PRN (17:46)
[2018-11-10] MEDS ORDERED: fentaNYL 100 MCG/2 ML INJ IVP PRN (17:46)
[2018-11-10] MEDS ORDERED: oxyCODONE IR 5 MG TAB PO PRN (17:46)
[2018-11-10] MEDS ORDERED: PROMETHAZINE HCL 25 MG/ML INJ IVP PRN (17:46)
[2018-11-10] MEDS ORDERED: HYDROmorphONE/DILAUDID 2 MG/ML INJ IVP PRN (17:46)
[2018-11-10] MEDS ORDERED: MEPERIDINE 25 MG/0.5 ML AMP ONE (18:15)
[2018-11-10] MEDS ORDERED: ACETAMINOPHEN 500 MG TAB ONE (18:28)
[2018-11-10] MEDS ORDERED: ACETAMINOPHEN 500 MG TAB PO ONE (19:30)
[2018-11-10] MEDS ORDERED: MEPERIDINE 25 MG/0.5 ML AMP IVP ONE (19:45)
[2018-11-10] MEDS: PIPERACILLIN/TAZO 3.375 GM/DEX 50 ML IV SCH (21:16)
[2018-11-10] MEDS: IBUPROFEN 600 MG TAB PO SCH (23:28)
[2018-11-11] MEDS: PIPERACILLIN/TAZO 3.375 GM/DEX 50 ML IV SCH ×2 (03:08→08:17)
[2018-11-11 05:26] VITALS: BP 94/55
[2018-11-11] MEDS: IBUPROFEN 600 MG TAB PO SCH (05:38)
[2018-11-11] MEDS ORDERED: AMOXICILLIN/CLAVULANATE POT 875/125 MG TAB PO SCH (09:00)
--- NOTE | 2018-11-11 11:29 | SOAPPROG ---
SOAP Progress Note Assessment/Plan: Assessment/Plan: 48yo M POD#1 s/p incision and drainage of large perirectal abscess. No fistula found on exam Pain controlled with oral pain medication Packing removed, Cintia in place. Expect drainage from the wound, change outer ABD as needed Lopez catheter removal, must void prior to discharge Dispo: Patient quite adamant on being discharged today. He must void prior to discharge. He will return to the clinic in 1 week for wound check. Seen with Dr. Tabares S: Feeling well this morning. Pain is well controlled. Very motivated to be discharged today O: Lying in bed, comfortable, no acute distress No increased work of breathing Perirectal wound with Cintia in place, packing removed without difficulty. Decreased amount of purulent drainage. Induration and erythema improved. Lopez with clear yellow urine Objective: Vital Signs Temp Pulse Resp BP Pulse Ox 36.6 C 62 16 94/55 L 96 11/11/18 08:00 11/11/18 08:00 11/11/18 08:00 11/11/18 08:00 11/11/18 08:00 Microbiology 11/10/18 17:15 Gram Stain - Final Groin - Aspirate 11/10/18 11/11/18 11/12/18 05:59 05:59 05:59 Intake Total 7200 Output Total 1060 Balance 4825 ICD10 Worksheet Patient Problems: Problems Problem Status Onset Abrasion Acute Contusion Acute Head injury Acute Injury of right hip Acute Lumbar transverse process fracture Acute Perianal abscess Acute Subdural hematoma Acute
--- NOTE | 2018-11-11 11:48 | GDS ---
[f rep st] DISCHARGE SUMMARY ADMITTING DIAGNOSIS: Perirectal abscess. SECONDARY DIAGNOSES: None. REASON FOR ADMISSION: A 48-year-old man who presented to the emergency room with severe rectal pain, on CT scan found to have a perirectal abscess. He was admitted for surgical intervention, pain cont rol, and observation. HOSPITAL COURSE: He was taken to the operating room on 11/10/[address] Enrique Tabares for incisio n and drainage of perirectal abscess with exam under anesthesia. No fistula was found at the time of surgery. The patient also complained of difficulty with urination, and a Lopez catheter was placed. On postoperative day #1, his pain was well controlled with oral pain medication. He was tolerating a regular diet. The packing was removed without difficulty, and Lopez catheter was removed with spo ntaneous void. He was ready for discharge. DISCHARGE CONDITION: Being discharged home in stable condition. DISCHARGE MEDICATIONS: Sent home with a prescription for Augmentin x5 days. Resume home medications . See EMR for further details. DISCHARGE INSTRUCTIONS AND FOLLOWUP: He may shower. He may expect drainage from his bottom and sena ge an outer bandage as needed. Return to the clinic in 1 week for wound check. Call with worsening symptoms, questions, or concerns. /[id number]/MODL
--- NOTE | 2018-11-12 12:40 | GOP ---
[f rep st] OPERATIVE REPORT DATE OF OPERATION: 11/10/2018 SURGEON: Enrique Tabares MD BANKRUPTCY ATTORNEY: None. ANESTHESIA: General endotracheal. ANESTHESIOLOGIST: Leon Campos MD PREOPERATIVE DIAGNOSIS: Perirectal abscess. POSTOPERATIVE DIAGNOSIS: Perirectal abscess. PROCEDURE PERFORMED: Examination under anesthesia with incision and drainage of perirectal abscess w ith drain placement. FINDINGS: Large horseshoe abscess. 1/2-inch Cintia left within the cavity as there was a counterin cision made on the contralateral side. SPECIMENS: Fluid for culture. ESTIMATED BLOOD LOSS: 50 cc. DESCRIPTION OF PROCEDURE: The patient was greeted in the preoperative suite. Once again, risks, charlotet efits, and alternatives were discussed. Consent was signed. He was then brought back to the operati ve suite, placed on the OR table in supine position. After all anesthesia machines including SCDs we re on and functioning, a [employer] time-out was performed. After successful inductio n of general anesthesia, the patient was placed in candy canes with all pressure points appropriately padded. His perirectal area was prepped and draped in typical sterile fashion. I commenced the pro cedure by using a finder needle and identified the purulent cavity over this area on the right buttoc k. I successfully made a 2 cm incision and immediately encountered foul-smelling purulent fluid. I digitally probed the cavity. It probed approximately 4 cm cranially as well as around to the other s suzi of the rectum in a horseshoe-type fashion. I made a counterincision on that side, which was abou t 1 cm, and successfully encountered and drained more purulent material. After all the cavities were successfully opened, I irrigated them with 1 L of sterile saline, removing all of the purulent fluid . I then packed the area with a lap pad to ensure hemostasis. The lap pad was then removed. Throug h both incisions, I then tracked a 1/4-inch Cintia drain. It was attached to the skin on either matilde es of this with an interrupted silk suture. The area was then packed with Kerlix. Local anesthesia was infiltrated for a field block. Patient was then extubated in the operative suite and taken to [facility] PACU in satisfactory condition. DRAINS: 1/2-inch Cintia left within the cavity. COUNTS: All counts reported as correct x2. /[id number]/MODL
== END 2018-11-11 10:53 | disposition home or self-care (01) ==
LOC: F3E 20:37
PROVIDERS: ADMIT Surgery; ATTEND Surgery
PROC: 0J9900Z Drainage of Buttock Subcutaneous Tissue and Fascia with Drainage Device, Open Approach (ICD-10-PCS; principal; 2018-11-10 16:30)
DX: K61.1 Rectal abscess (principal); K59.00 Constipation, unspecified
CPT/HCPCS: 45005; 74177; G0378; 82435-PO; 82565-PO; 82947-PO; 84132-PO; 84295-PO; 84520-PO; 85014-ER; J0694; J1100; J1885; J2175; J2405; J2543; J2704; J3010; Q9967

== ENCOUNTER → 2018-11-13 | Day surgery (SDC) | payer OTHER | END | disposition home or self-care (01) | LOC: FIMAGING 15:17 | PROVIDERS: ATTEND Internal Medicine Infectious Disease | PROC: 02H633Z Insertion of Infusion Device into Right Atrium, Percutaneous Approach (ICD-10-PCS; principal; 2018-11-13) | DX: R78.81 Bacteremia (principal) | CPT/HCPCS: 36569; 77001; C1751 ==